=== PATIENT | male | born 1965 | race Caucasian/White ===

== ENCOUNTER → 2016-11-26 | Outpatient (CLI) | payer OTHER ==
--- NOTE | 2016-11-26 08:18 | US ---
EXAMINATION TYPE: US abdomen limited DATE OF EXAM: 11/26/2016 COMPARISON: CTA chest dated 06/17/2013 CLINICAL HISTORY: K21.9 Gastroesphageal reflux disease. EXAM MEASUREMENTS: Liver Length: 11.8 cm Gallbladder Wall: 0.5 cm CBD: 0.4 cm Right Kidney: 10.4 x 5.4 x 4.7 cm Patient had extensive midline bowel gas, only able to visualized organs intercostally. Pancreas: Obscured by bowel gas Liver: There is mild heterogeneity of the hepatic parenchyma with poor visualization of the portal tr iads. This finding slightly limiting evaluation for underlying hepatic masses. Gallbladder: limited views, slightly thickened wall Evidence for sonographic Welsh's sign: no CBD: wnl Right Kidney: wnl IMPRESSION: Mild heterogeneity of the hepatic echotexture, most commonly related to mild hepatic steatosis. Adjac ent slight gallbladder wall thickening may relate to partial contraction, adjacent hepatocellular dis ease, or less likely gallbladder dysfunction. No other sonographic evidence of acute cholecystitis. C orrelation with bilirubin, hepatic enzymes, symptoms and right upper quadrant pain are recommended to determine necessity of HIDA scan to evaluate for biliary dyskinesia/chronic cholecystitis.
== END | disposition home or self-care (01) ==
LOC: RADUSWWP 07:32
PROVIDERS: ATTEND Family Medicine
DX: K76.89 Other specified diseases of liver (principal); K82.8 Other specified diseases of gallbladder
CPT/HCPCS: 76705

== ENCOUNTER 2018-04-09 17:39 | Observation (INO) | payer BC, OTHER ==
[2018-04-09] MEDS ORDERED: SODIUM CHLORIDE 0.9% 1,000 ML IV STA (18:41)
--- NOTE | 2018-04-09 18:42 | ED ---
Chest Pain HPI - General Chief Complaint: Chest Pain Stated Complaint: CHEST PAIN Time Seen by Provider: 04/09/18 18:41 Source: patient, RN notes reviewed, old records reviewed Mode of arrival: ambulatory Limitations: no limitations - History of Present Illness Initial Comments: This is a 52-year-old male to the ER for evaluation. This patient presents today for evaluation of chest pain. No significant medical history takes no medications nonsmoker. No strong family history of heart disease. Patient coming of chest pain off the ER prior to arrival. Left-sided chest pain feels tenseness and heaviness on his chest. No recent travel history, no sick contacts. Patient has no prior evaluation for chest pain. Onset: during rest Pain Location: substernal, left chest Severity: mild Severity scale (1-10): 2 Quality: aching Consistency: constant Improves With: nothing Worsens With: nothing Treatments Prior to Arrival: none - Related Data Home Medications Medication Instructions Recorded Confirmed Omeprazole [PriLOSEC] 20 mg PO DAILY 04/09/18 04/09/18 levETIRAcetam [Keppra] 1,000 mg PO QAM 04/09/18 04/09/18 levETIRAcetam [Keppra] 2,000 mg PO HS 04/09/18 04/09/18 Allergies Allergy/AdvReac Type Severity Reaction Status Date / Time No Known Allergies Allergy Verified 04/09/18 18:24 Review of Systems ROS Statement: Those systems with pertinent positive or pertinent negative responses have been documented in the HPI. ROS Other: All systems not noted in ROS Statement are negative. Past Medical History Past Medical History: Seizure Disorder History of Any Multi-Drug Resistant Organisms: None Reported Past Surgical History: Orthopedic Surgery Additional Past Surgical History / Comment(s): sinus surgery Past Psychological History: No Psychological Hx Reported Smoking Status: Never smoker Past Alcohol Use History: Occasional Past Drug Use History: None Reported General Exam Limitations: no limitations General appearance: alert, in no apparent distress Head exam: Present: atraumatic, normocephalic, normal inspection Eye exam: Present: normal appearance, PERRL, EOMI. Absent: scleral icterus, conjunctival injection, periorbital swelling ENT exam: Present: normal exam, mucous membranes moist Neck exam: Present: normal inspection. Absent: tenderness, meningismus, lymphadenopathy Respiratory exam: Present: normal lung sounds bilaterally. Absent: respiratory distress, wheezes, rales, rhonchi, stridor Cardiovascular Exam: Present: normal rhythm, tachycardia, normal heart sounds. Absent: systolic murmur, diastolic murmur, rubs, gallop, clicks GI/Abdominal exam: Present: soft, normal bowel sounds. Absent: distended, tenderness, guarding, rebound, rigid Extremities exam: Present: normal inspection, full ROM, normal capillary refill. Absent: tenderness, pedal edema, joint swelling, calf tenderness Back exam: Present: normal inspection Neurological exam: Present: alert, oriented X3, CN II-XII intact Psychiatric exam: Present: normal affect, normal mood Skin exam: Present: warm, dry, intact, normal color. Absent: rash Course Vital Signs 04/09/18 04/09/18 04/09/18 17:41 18:40 21:00 Temperature 98.2 F Pulse Rate 101 H 89 92 Respiratory 18 16 16 Rate Blood Pressure 162/127 142/100 142/100 O2 Sat by Pulse 98 93 L 97 Oximetry - Reevaluation(s) Reevaluation #1: 04/09/18 21:10 Medical record reviewed Reevaluation #2: 04/09/18 21:10 Patient still continues to chest pain Chest Pain MDM - MDM 52 male the ER for evaluation. Patient presents today for evaluation regarding chest pain. CT shows coronary artery calcifications, patient will be admitted for cardiac evaluation Critical Care Time Critical Care Time: Yes Total Critical Care Time: 31 Disposition Clinical Impression: Chest pain Disposition: ADMITTED IP TO THIS [facility] Condition: Undetermined Instructions (If sedation given, give patient instructions): Chest Pain (ED) Referrals: Aida Suazo MD [Primary Care Provider] - 1-2 days
[2018-04-09 18:47] LABS: Basophils # (A) 0.1 k/uL (0-0.2); Basophils % (A) 1 %; Eosinophils # (A) 0.3 k/uL (0-0.7); Eosinophils % (A) 3 %; HCT 54.6 % (39.0-53.0); HGB 18.5 gm/dL (13.0-17.5); Lymphocytes # (A) 2.4 k/uL (1.0-4.8); Lymphocytes % (A) 25 %; MCH 30.6 pg (25.0-35.0); MCHC 33.8 g/dL (31.0-37.0); MCV 90.4 fL (80.0-100.0); Mean Platelet Volume 6.9; Monocytes # (A) 0.6 k/uL (0-1.0); Monocytes % (A) 7 %; Neutrophils # (A) 6.1 k/uL (1.3-7.7); Neutrophils % (A) 63 %; Platelet Count 270 k/uL (150-450); RBC 6.04 m/uL (4.30-5.90); RDW 13.6 % (11.5-15.5); WBC 9.7 k/uL (3.8-10.6)
[2018-04-09 18:57] LABS: ALT 35 U/L (21-72); AST 31 U/L (17-59); Alkaline Phosphatase 100 U/L (38-126); Anion Gap 12 mmol/L; Blood Urea Nitrogen 16 mg/dL (9-20); Calcium 9.9 mg/dL (8.4-10.2); Carbon Dioxide 24 mmol/L (22-30); Chloride 104 mmol/L (98-107); Glucose 115 mg/dL (74-99); Magnesium 1.8 mg/dL (1.6-2.3); Potassium 4.7 mmol/L (3.5-5.1); Sodium 140 mmol/L (137-145); Total Bilirubin 0.6 mg/dL (0.2-1.3); Total Protein 8.6 g/dL (6.3-8.2)
[2018-04-09 19:04] LABS: Creatine Kinase 56 U/L (55-170)
[2018-04-09 19:16] LABS: Creatine Kinase MB 0.5 ng/mL (0.0-2.4); Troponin I <0.012 ng/mL (0.000-0.034)
[2018-04-09 19:18] LABS: D-Dimer <0.17 mg/L FEU (<0.60); Partial Thromboplastin Time 24.9 sec (22.0-30.0); Prothrombin Time 10.5 sec (9.0-12.0)
--- NOTE | 2018-04-09 20:51 | XR ---
EXAMINATION: XR chest 2V DATE AND TIME: 04/09/2018 8:12 PM CLINICAL INDICATION: PHH; pain TECHNIQUE: Departmental protocol COMPARISON: 06/20/2013 FINDINGS: The lungs are clear. The right hemidiaphragm is elevated, similar to the prior study. Pleural spaces are negative as seen. The cardiac silhouette is mildly enlarged, unchanged. The remainder of the mediastinal silhouette is unremarkable. The skeletal structures and soft tissues are negative for acute findings. IMPRESSION: NO ACUTE PROCESS.
--- NOTE | 2018-04-09 20:55 | CT ---
EXAMINATION TYPE: CT angio chest with contrast and with 3-D reconstruction renderings DATE OF EXAM: 04/09/2018 8:05 PM HISTORY: Pain and dyspnea CT DLP: 335.8 mGycm Automated exposure control for dose reduction was used. CONTRAST: CTA scan of the thorax is performed; patient injected with 100 mL of Isovue 370, pulmonary embolism p rotocol. 3-D reconstructions. FINDINGS: LUNGS: The lungs are grossly clear, there is no concerning parenchymal mass or nodule identified. T here is no pleural effusion or pneumothorax seen. The tracheobronchial tree is patent. MEDIASTINUM: There is satisfactory enhancement of the pulmonary artery and its branches, there is no CT evidence for pulmonary embolism. No acute aortic findings, though tortuosity noted. There is no ca rdiomegaly. Coronary calcifications are noted. No pericardial effusion. There are no greater than 1 c m hilar or mediastinal lymph nodes. OTHER: No additional significant abnormality is seen. IMPRESSION: 1. NO ACUTE PROCESS. 2. CORONARY CALCIFICATIONS.
[2018-04-09] MEDS ORDERED: HEPARIN SODIUM,PORCINE 5,000 UNIT/ML 1 ML VIAL IV PRN (21:08)
[2018-04-09] MEDS ORDERED: HEPARIN SODIUM,PORCINE 5,000 UNIT/ML 1 ML VIAL IV ONE (21:08)
[2018-04-09] MEDS ORDERED: HEPARIN SOD,PORK IN 0.45% NACL 25,000 UNIT in 0.45% NACL 1 250ML.BAG IV SCH (21:15)
[2018-04-09] MEDS ORDERED: ASPIRIN 81 MG PO STA (21:41)
[2018-04-09 23:08] VITALS: BMI 28.6
[2018-04-09] MEDS ORDERED: levETIRAcetam 500 MG TAB PO SCH (23:30)
[2018-04-10 01:19] LABS: Creatine Kinase 43 U/L (55-170)
[2018-04-10 01:33] LABS: Creatine Kinase MB 0.3 ng/mL (0.0-2.4); Troponin I <0.012 ng/mL (0.000-0.034)
[2018-04-10 06:16] LABS: Mean Platelet Volume 6.8; Platelet Count 266 k/uL (150-450)
[2018-04-10 06:35] LABS: Cholesterol 167 mg/dL (<200); HDL Cholesterol 53 mg/dL (40-60); LDL Cholesterol,Calculated 82 mg/dL (0-99); Triglycerides 162 mg/dL (<150)
[2018-04-10 06:38] LABS: Creatine Kinase 40 U/L (55-170)
[2018-04-10 06:50] LABS: Creatine Kinase MB 0.3 ng/mL (0.0-2.4); Troponin I <0.012 ng/mL (0.000-0.034)
[2018-04-10 08:49] VITALS: BP 135/88; PULSE 82; RESP 18; TEMP 97.6
[2018-04-10] MEDS ORDERED: ASPIRIN 325 MG TAB PO SCH (09:00)
[2018-04-10] MEDS ORDERED: PANTOPRAZOLE 40 MG TABLET PO SCH (09:00)
[2018-04-10] MEDS ORDERED: levETIRAcetam 500 MG TAB PO SCH (09:00)
[2018-04-10] MEDS ORDERED: ATORVASTATIN 20 MG TAB PO SCH (09:00)
[2018-04-10] MEDS ORDERED: ATORVASTATIN 80 MG TAB PO SCH (09:00)
[2018-04-10] MEDS ORDERED: METOPROLOL TARTRATE 25 MG TAB PO SCH (09:00)
--- NOTE | 2018-04-10 09:48 | P.CRDCN ---
History of Present Illness History of present illness: This is Dr. Benito dictating a consult on this patient The patient was interviewed and examined by me IMPRESSION / ASSESSMENT: chest discomfort with normal cardiac enzymes normal ECG Coronary calcification Family history of coronary artery disease No personal history of hypertension diabetes and dyslipidemia PLAN: 2-D echo and Doppler study to assess pericardium and Extraction function Atorvastatin 20 mg by mouth daily Follow-up in the office in 1-2 weeks Patient to go home if cleared from a medical standpoint HPI patient presented with recurrent chest discomfort and he thought he was coming down with cold and the pain is worse when he takes a deep breath it is around the left side going around to the back No other associated symptoms ROS: No fever chills or rigors, no cough, phlegm or expectoration, no nausea, vomiting or diarrhea, no hematuria, dysuria, no musculoskeletal complaints, no strokes or seizures, no skin lesions. EXAMINATION: 135/85 mmHg afebrile Breath sounds are clear no rhonchi no crackles Heart sounds S1 and S2 are normal no murmurs or gallops. Abdomen soft nontender Extremities warm no edema REVIEW OF LABS, ECG & MEDICAL DATA Computed tomography scan states coronary calcification no evidence for pulmonary embolism no acute aortic findings Right hemidiaphragm is elevated Past Medical History Past Medical History: Seizure Disorder History of Any Multi-Drug Resistant Organisms: None Reported Past Surgical History: Orthopedic Surgery, Tonsillectomy Additional Past Surgical History / Comment(s): sinus surgery, L meniscus Past Anesthesia/Blood Transfusion Reactions: No Reported Reaction Past Psychological History: No Psychological Hx Reported Smoking Status: Never smoker Past Alcohol Use History: Occasional Past Drug Use History: None Reported Medications and Allergies Home Medications Medication Instructions Recorded Confirmed Type Omeprazole [PriLOSEC] 20 mg PO DAILY 04/09/18 04/09/18 History levETIRAcetam [Keppra] 1,000 mg PO QAM 04/09/18 04/09/18 History levETIRAcetam [Keppra] 2,000 mg PO HS 04/09/18 04/09/18 History Allergies Allergy/AdvReac Type Severity Reaction Status Date / Time No Known Allergies Allergy Verified 04/09/18 18:24 Physical Exam Vitals: Vital Signs Temp Pulse Pulse Resp BP BP Pulse Ox 04/10/18 08:00 82 18 04/10/18 07:28 97.6 F 82 18 135/88 94 L 04/10/18 04:00 98.0 F 79 15 131/84 94 L 04/10/18 00:00 77 15 04/09/18 23:24 98.1 F 77 15 154/94 96 04/09/18 21:52 97 16 148/98 96 04/09/18 21:00 92 16 142/100 97 04/09/18 19:30 87 18 134/95 97 04/09/18 18:40 89 16 142/100 93 L 04/09/18 17:41 98.2 F 101 H 18 162/127 98 Intake and Output 04/09/18 04/10/18 04/10/18 22:59 06:59 14:59 Other: # Voids 1 Weight 78.925 kg Results 04/10/18 06:01 04/09/18 18:17 Cardiac Enzymes 04/09/18 04/09/18 04/10/18 Range/Units 18:17 18:17 00:09 AST 31 (17-59) U/L CK-MB (CK-2) 0.5 0.3 (0.0-2.4) ng/mL Troponin I <0.012 <0.012 (0.000-0.034) ng/mL 04/10/18 Range/Units 06:01 AST (17-59) U/L CK-MB (CK-2) 0.3 (0.0-2.4) ng/mL Troponin I <0.012 (0.000-0.034) ng/mL Coagulation 04/09/18 04/10/18 Range/Units 18:17 03:30 PT 10.5 (9.0-12.0) sec APTT 24.9 51.6 H (22.0-30.0) sec Lipids 04/10/18 Range/Units 06:01 Triglycerides 162 H (<150) mg/dL Cholesterol 167 (<200) mg/dL HDL Cholesterol 53 (40-60) mg/dL CBC 04/09/18 04/10/18 Range/Units 18:17 06:01 WBC 9.7 (3.8-10.6) k/uL RBC 6.04 H (4.30-5.90) m/uL Hgb 18.5 H (13.0-17.5) gm/dL Hct 54.6 H (39.0-53.0) % Plt Count 270 266 (150-450) k/uL Comprehensive Metabolic Panel 04/09/18 Range/Units 18:17 Sodium 140 (137-145) mmol/L Potassium 4.7 (3.5-5.1) mmol/L Chloride 104 (98-107) mmol/L Carbon Dioxide 24 (22-30) mmol/L BUN 16 (9-20) mg/dL Creatinine 0.90 (0.66-1.25) mg/dL Glucose 115 H (74-99) mg/dL Calcium 9.9 (8.4-10.2) mg/dL AST 31 (17-59) U/L ALT 35 (21-72) U/L Alkaline Phosphatase 100 (38-126) U/L Total Protein 8.6 H (6.3-8.2) g/dL Albumin 5.0 (3.5-5.0) g/dL Current Medications Generic Name Dose Route Start Last Admin Trade Name Freq PRN Reason Stop Dose Admin Atorvastatin Calcium 20 mg 04/10/18 09:00 04/10/18 08:55 Lipitor PO 20 mg DAILY ELMIRA Administration Levetiracetam 1,000 mg 04/10/18 09:00 04/10/18 08:55 Keppra PO 1,000 mg QAM [place]IRA Administration Levetiracetam 2,000 mg 04/09/18 23:30 04/10/18 00:05 Keppra PO 2,000 mg HS EL[place]IRA Administration Pantoprazole Sodium 40 mg 04/10/18 09:00 04/10/18 08:55 Protonix PO 40 mg DAILY EL[place]IRA Administration Intake and Output 04/09/18 04/10/18 04/10/18 22:59 06:59 14:59 Other: # Voids 1 Weight 78.925 kg 04/10/18 06:01 04/09/18 18:17
--- NOTE | 2018-04-10 11:31 | ECHOF ---
Referral Reason:chest pain MEASUREMENTS -------- HEIGHT: 170.2 cm WEIGHT: 78.9 kg BP: 131/84 RVIDd: 2.9 cm (< 3.3) IVSd: 1.0 cm (0.6 - 1.1) LVIDd: 4.4 cm (3.9 - 5.3) LVPWd: 1.1 cm (0.6 - 1.1) IVSs: 1.5 cm LVIDs: 3.3 cm LVPWs: 1.1 cm Ao Diam: 3.3 cm (2.0 - 3.7) AV Cusp: 1.6 cm (1.5 - 2.6) LA Diam: 3.1 cm (2.7 - 3.8) MV EXCURSION: 17.701 mm (> 18.000) MV EF SLOPE: 83 mm/s (70 - 150) EPSS: 0.3 cm MV E Alli: 0.38 m/s MV DecT: 227 ms MV A Alli: 0.76 m/s MV E/A Ratio: 0.49 RAP: 5.00 mmHg RVSP: 15.10 mmHg FINDINGS -------- Sinus rhythm. This was a technically adequate study. LV size, wall thickness and systolic function are normal, with an EF greater than 55%. The left heber tricular size is normal. The right ventricle is normal in size. The left atrial size is normal. The right atrial size is normal. The aortic valve is trileaflet, and appears structurally normal. No aortic stenosis or regurgitation. Mild mitral annular calcification present. Mild mitral regurgitation is present. Mild tricuspid regurgitation present. There is no evidence of pulmonary hypertension. The right v entricular systolic pressure, as measured by Doppler, is 15.10mmHg. There is no pulmonic regurgitation present. The aortic root size is normal. There is no pericardial effusion. CONCLUSIONS -------- 1. LV size, wall thickness and systolic function are normal, with an EF greater than 55%. 2. The left ventricular size is normal. 3. The right ventricle is normal in size. 4. The left atrial size is normal. 5. The right atrial size is normal. 6. The aortic valve is trileaflet, and appears structurally normal. No aortic stenosis or regurgitati on. 7. Mild mitral annular calcification present. 8. Mild mitral regurgitation is present. 9. Mild tricuspid regurgitation present. 10. There is no evidence of pulmonary hypertension. 11. The right ventricular systolic pressure, as measured by Doppler, is 15.10mmHg. 12. There is no pulmonic regurgitation present. 13. The aortic root size is normal. 14. There is no pericardial effusion. WILLOW WORKER: Aaliyah Casas RDCS
--- NOTE | 2018-04-10 12:35 | P.HPIM ---
History of Present Illness 60-year-old male came in with compensative chest pressure like sensation which started yesterday while he was driving on that side of chest pressure-like sensation moderate severity much better now unsure whether rate radiating to axilla denied any diaphoresis denied any shortness of breath lightheadedness. Patient chest pain is reproducible nonpleuritic not associated with food. Patient is also complaining of some back pain neck pain. Patient appears to have musculoskeletal chest pain. She denied any fever chills cough. Patient is not a smoker his hematocrit is elevated can be evaluated as an outpatient. Ruled out acute Syndromes EKG Did Not Show Any Acute ST-T wave Changes Troponins Were Negative Patient Had an Echo Cardiac Exam Which Is Essentially within Normal Limits Patient Was Evaluated by Cardiology and Cleared Him for Discharge. CT Angios the Set Showed Some Coronary Calcifications without Any Pneumonic Process or PE Review of Systems REVIEW OF SYSTEMS: CONSTITUTIONAL: No fever, no malaise, no fatigue. HEENT: No recent visual problems or hearing problems. Denied any sore throat. CARDIOVASCULAR: No orthopnea, PND, no palpitations, no syncope. PULMONARY: No shortness of breath, no cough, no hemoptysis. GASTROINTESTINAL: No diarrhea, no nausea, no vomiting, no abdominal pain. NEUROLOGICAL: No headaches, no weakness, no numbness. HEMATOLOGICAL: Denies any bleeding or petechiae. GENITOURINARY: Denies any burning micturition, frequency, or urgency. MUSCULOSKELETAL/RHEUMATOLOGICAL: Denies any joint pain, swelling, or any muscle pain. ENDOCRINE: Denies any polyuria or polydipsia. The rest of the 14-point review of systems is negative. Past Medical History Past Medical History: Seizure Disorder History of Any Multi-Drug Resistant Organisms: None Reported Past Surgical History: Orthopedic Surgery, Tonsillectomy Additional Past Surgical History / Comment(s): sinus surgery, L meniscus Past Anesthesia/Blood Transfusion Reactions: No Reported Reaction Past Psychological History: No Psychological Hx Reported Smoking Status: Never smoker Past Alcohol Use History: Occasional Past Drug Use History: None Reported Medications and Allergies Home Medications Medication Instructions Recorded Confirmed Type Omeprazole [PriLOSEC] 20 mg PO DAILY 04/09/18 04/09/18 History levETIRAcetam [Keppra] 1,000 mg PO QAM 04/09/18 04/09/18 History levETIRAcetam [Keppra] 2,000 mg PO HS 04/09/18 04/09/18 History Allergies Allergy/AdvReac Type Severity Reaction Status Date / Time No Known Allergies Allergy Verified 04/09/18 18:24 Physical Exam Vitals: Vital Signs Temp Pulse Pulse Resp BP BP Pulse Ox 04/10/18 12:00 82 18 04/10/18 08:00 82 18 04/10/18 07:28 97.6 F 82 18 135/88 94 L 04/10/18 04:00 98.0 F 79 15 131/84 94 L 04/10/18 00:00 77 15 04/09/18 23:24 98.1 F 77 15 154/94 96 04/09/18 21:52 97 16 148/98 96 04/09/18 21:00 92 16 142/100 97 04/09/18 19:30 87 18 134/95 97 04/09/18 18:40 89 16 142/100 93 L 04/09/18 17:41 98.2 F 101 H 18 162/127 98 Intake and Output 04/09/18 04/10/18 04/10/18 22:59 06:59 14:59 Other: # Voids 1 1 Weight 78.925 kg PHYSICAL EXAMINATION: GENERAL: The patient is alert and oriented x3, not in any acute distress. Well developed, well nourished. HEENT: Pupils are round and equally reacting to light. EOMI. No scleral icterus. No conjunctival pallor. Normocephalic, atraumatic. No pharyngeal erythema. No thyromegaly. CARDIOVASCULAR: S1 and S2 present. No murmurs, rubs, or gallops. Reproducible chest pain PULMONARY: Chest is clear to auscultation, no wheezing or crackles. ABDOMEN: Soft, nontender, nondistended, normoactive bowel sounds. No palpable organomegaly. MUSCULOSKELETAL: No joint swelling or deformity. EXTREMITIES: No cyanosis, clubbing, or pedal edema. NEUROLOGICAL: Gross neurological examination did not reveal any focal deficits. SKIN: No rashes. Results CBC & Chem 7: 04/10/18 06:01 04/09/18 18:17 Labs: Abnormal Lab Results - Last 24 Hours (Table) 04/09/18 04/09/18 04/10/18 Range/Units 18:17 18:17 00:09 RBC 6.04 H (4.30-5.90) m/uL Hgb 18.5 H (13.0-17.5) gm/dL Hct 54.6 H (39.0-53.0) % APTT (22.0-30.0) sec Glucose 115 H (74-99) mg/dL Total Creatine Kinase 43 L (55-170) U/L Total Protein 8.6 H (6.3-8.2) g/dL Triglycerides (<150) mg/dL 04/10/18 04/10/18 04/10/18 Range/Units 03:30 06:01 06:01 RBC (4.30-5.90) m/uL Hgb (13.0-17.5) gm/dL Hct (39.0-53.0) % APTT 51.6 H (22.0-30.0) sec Glucose (74-99) mg/dL Total Creatine Kinase 40 L (55-170) U/L Total Protein (6.3-8.2) g/dL Triglycerides 162 H (<150) mg/dL Thrombosis Risk Factor Assmnt - Choose All That Apply Any of the Below Risk Factors Present?: Yes Each Factor Represents 1 point: Age 41-60 years Other Risk Factors: No Other congenital or acquired thrombophilia - If yes, enter type in comment: No Thrombosis Risk Factor Assessment Total Risk Factor Score: 1 Thrombosis Risk Factor Assessment Level: Low Risk Assessment and Plan Plan: -Chest pain rule out acute medicine syndromes probably musculoskeletal in nature patient was asked to take [id number] Tylenol and as-needed basis patient does have gastroesophageal reflux disease. For which he takes Prilosec at home. -Elevated hematocrit etiology is unknown further evaluation as an outpatient may be a bit dehydrated but patient doesn't admit to smoking. -Seizure disorder for which patient is on Keppra which will be continued follow- up as an outpatient -Ruled out pulmonary embolism
--- NOTE | 2018-04-10 12:36 | P.DS ---
Providers Date of admission: 04/09/18 21:10 Attending physician: Marbin Olivares Consults: 04/09/18 21:08 Consult Physician Urgent Consulting Provider: Christiano Muse Consult Reason/Comments: cp Do you want consulting provider notified?: Yes Primary care physician: Aida Suazo [facility] Course: Please refer to my HPI Patient Condition at Discharge: Undetermined Plan - Discharge Summary Discharge Rx Participant: Yes New Discharge Prescriptions: No Action Omeprazole [PriLOSEC] 20 mg PO DAILY levETIRAcetam [Keppra] 2,000 mg PO HS levETIRAcetam [Keppra] 1,000 mg PO QAM Discharge Medication List Omeprazole [PriLOSEC] 20 mg PO DAILY 04/09/18 [History] levETIRAcetam [Keppra] 1,000 mg PO QAM 04/09/18 [History] levETIRAcetam [Keppra] 2,000 mg PO HS 04/09/18 [History] Follow up Appointment(s)/Referral(s): Jim Benito MD [STAFF PHYSICIAN] - 1 Week Aida Suazo MD [Primary Care Provider] - 1-2 days Patient Instructions/Handouts: Chest Pain (ED) Discharge Disposition: HOME SELF-CARE
== END 2018-04-10 15:01 | disposition home or self-care (01) ==
LOC: EC 17:39 → 1SOBS 21:10
PROVIDERS: ADMIT Hospitalist; ATTEND Hospitalist
DX: R07.89 Other chest pain (principal); K21.9 Gastro-esophageal reflux disease without esophagitis; G40.909 Epilepsy, unspecified, not intractable, without status epilepticus; R71.8 Other abnormality of red blood cells; Z79.899 Other long term (current) drug therapy; I25.10 Atherosclerotic heart disease of native coronary artery without angina pectoris; J98.6 Disorders of diaphragm; Z82.49 Family history of ischemic heart disease and other diseases of the circulatory system
CPT/HCPCS: 96366 ×2; 96376; 96361; 96365; 99291; 36415; 93005; 93306; 85379; 83880; 80061; 80053; 82550 ×2; 82553 ×2; 83690; 83735; 84484 ×2; 85025; 85049; 85610; 85730 ×2; 71046; 71275; G0378 ×2; J1644 ×2; Q9967

== ENCOUNTER 2020-07-05 07:37 | Emergency (ER) | payer BC ==
[2020-07-05 07:41] VITALS: RESP 18
[2020-07-05] MEDS ORDERED: SODIUM CHLORIDE 0.9% 1,000 ML IV STA (08:06)
[2020-07-05] MEDS ORDERED: ACETAMINOPHEN TAB 500 MG TAB PO STA (08:07)
--- NOTE | 2020-07-05 08:12 | ED ---
General Adult HPI - General Chief complaint: Upper Respiratory Infection Stated complaint: Covid+, low O2 Time Seen by Provider: 07/05/20 07:53 Source: patient, RN notes reviewed Mode of arrival: ambulatory Limitations: no limitations - History of Present Illness Initial comments: 54-year-old male with a past medical history of seizure disorder presents to the emergency room for a chief complaint of shortness of breath. Patient reports about 8 days ago he started to develop symptoms of Coronavirus. States he has had a cough and shortness of breath. States he has had fevers on and off. Patient states he tested positive on last week. Patient states he's presenting to the emergency room today because he just does not seem to be getting better. States he is still having fevers if he does not take Tylenol. States he is still feeling short of breath.Patient has no other complaints at this time including chest pain, abdominal pain, nausea or vomiting, headache, or visual changes. - Related Data Home Medications Medication Instructions Recorded Confirmed levETIRAcetam [Keppra] 1,000 mg PO DAILY 04/09/18 07/05/20 levETIRAcetam [Keppra] 1,500 mg PO HS 04/09/18 07/05/20 Ascorbic Acid [Vitamin C] 1,000 mg PO DAILY 07/05/20 07/05/20 Cholecalciferol [Vitamin D3 (25 25 mcg PO DAILY 07/05/20 07/05/20 Mcg = 1000 Iu)] Latanoprost/Pf [Latanoprost 0.005% 1 drop BOTH EYES HS 07/05/20 07/05/20 Eye Drop] Zinc 50 mg PO DAILY 07/05/20 07/05/20 Previous Rx's Medication Instructions Recorded Azithromycin [Zithromax Z-pack (6 250 mg PO DIRECTED #6 tab 07/05/20 tabs)] Ipratropium-Albuterol Nebulize 3 ml INHALATION TID PRN #15 neb 07/05/20 [Duoneb 0.5 mg-3 mg/3 ml Soln] Allergies Allergy/AdvReac Type Severity Reaction Status Date / Time No Known Allergies Allergy Verified 07/05/20 08:31 Review of Systems ROS Statement: Those systems with pertinent positive or pertinent negative responses have been documented in the HPI. ROS Other: All systems not noted in ROS Statement are negative. Past Medical History Past Medical History: Seizure Disorder History of Any Multi-Drug Resistant Organisms: None Reported Past Surgical History: Orthopedic Surgery, Tonsillectomy Additional Past Surgical History / Comment(s): sinus surgery, L meniscus Past Anesthesia/Blood Transfusion Reactions: No Reported Reaction Past Psychological History: No Psychological Hx Reported Smoking Status: Never smoker Past Alcohol Use History: Occasional Past Drug Use History: None Reported General Exam Limitations: no limitations General appearance: alert, in no apparent distress Head exam: Present: atraumatic, normocephalic, normal inspection Eye exam: Present: normal appearance, PERRL, EOMI. Absent: scleral icterus, conjunctival injection, periorbital swelling ENT exam: Present: normal exam, mucous membranes moist Neck exam: Present: normal inspection. Absent: tenderness, meningismus, lymphadenopathy Respiratory exam: Present: normal lung sounds bilaterally. Absent: respiratory distress, wheezes, rales, rhonchi, stridor Cardiovascular Exam: Present: regular rate, normal rhythm, normal heart sounds. Absent: systolic murmur, diastolic murmur, rubs, gallop, clicks Course Vital Signs 07/05/20 07:38 Temperature 97.8 F Pulse Rate 97 Respiratory 18 Rate Blood Pressure 136/92 O2 Sat by Pulse 94 L Oximetry EKG Findings - EKG Comments: EKG Findings:: Normal sinus rhythm, ventricular rate 95, MO interval 152, QTC 444 Medical Decision Making - Medical Decision Making Vitals are stable. Oxygen is between 95 and 96% when I am in the room. Patient is well-appearing. EKG nonischemic. CBC CMP unremarkable. Transaminitis likely secondary to [place] virus. This x-ray did reveal mild patchy interstiti al Covid infiltrates in the mid and lower lungs. Patient is stable for discharge home. He does not qualify for BAM. Discussed that this is most likely related to viral disease however patient does prefer to start antibiotic therapy at this time. He is already taking zinc and vitamin C which he will continue. I will write him medication for his nebulizer. He will follow-up with his doctor. He will return here for any worsening symptoms. - Lab Data Result diagrams: 07/05/20 08:17 07/05/20 08:17 Lab Results 07/05/20 07/05/20 Range/Units 08:17 08:17 WBC 8.1 (3.8-10.6) k/uL RBC 5.51 (4.30-5.90) m/uL Hgb 17.2 (13.0-17.5) gm/dL Hct 49.0 (39.0-53.0) % MCV 89.0 (80.0-100.0) fL MCH 31.3 (25.0-35.0) pg MCHC 35.1 (31.0-37.0) g/dL RDW 12.8 (11.5-15.5) % Plt Count 267 (150-450) k/uL MPV 7.2 Neutrophils % 75 % Lymphocytes % 12 % Monocytes % 9 % Eosinophils % 1 % Basophils % 2 % Neutrophils # 6.0 (1.3-7.7) k/uL Lymphocytes # 1.0 (1.0-4.8) k/uL Monocytes # 0.7 (0-1.0) k/uL Eosinophils # 0.1 (0-0.7) k/uL Basophils # 0.1 (0-0.2) k/uL Sodium 135 L (137-145) mmol/L Potassium 4.2 (3.5-5.1) mmol/L Chloride 98 (98-107) mmol/L Carbon Dioxide 27 (22-30) mmol/L Anion Gap 10 mmol/L BUN 11 (9-20) mg/dL Creatinine 0.80 (0.66-1.25) mg/dL Est GFR (CKD-EPI)AfAm >90 (>60 ml/min/1.73 sqM) Est GFR (CKD-EPI)NonAf >90 (>60 ml/min/1.73 sqM) Glucose 110 H (74-99) mg/dL Calcium 8.7 (8.4-10.2) mg/dL Total Bilirubin 0.8 (0.2-1.3) mg/dL AST 113 H (17-59) U/L ALT 206 H (4-49) U/L Alkaline Phosphatase 121 (38-126) U/L Total Protein 7.1 (6.3-8.2) g/dL Albumin 3.9 (3.5-5.0) g/dL Disposition Clinical Impression: Pneumonia due to COVID-19 virus Disposition: HOME SELF-CARE Condition: Good Instructions (If sedation given, give patient instructions): Coronavirus Disease 2019 (COVID-19) Additional Instructions: Please take antibiotic as directed. Please follow-up with your doctor. If you develop worsening symptoms return to the emergency room. Prescriptions: Ipratropium-Albuterol Nebulize [Duoneb 0.5 mg-3 mg/3 ml Soln] 3 ml INHALATION TID PRN #15 neb PRN Reason: Shortness Of Breath Azithromycin [Zithromax Z-pack (6 tabs)] 250 mg PO DIRECTED #6 tab Is patient prescribed a controlled substance at d/c from ED?: No Referrals: Aida Suazo MD [Primary Care Provider] - 1-2 days Time of Disposition: 09:14
--- NOTE | 2020-07-05 08:24 | XR ---
EXAMINATION TYPE: XR chest 1V portable DATE OF EXAM: 07/05/2020 Comparison: 04/09/2018 Clinical History: 54-year-old female with fever, COVID Findings: Heart upper limits of normal in size. Mild patchy interstitial changes in the mid and lower lungs. No pleural effusion. Impression: Mild patchy interstitial COVID infiltrates in the mid and lower lungs.
[2020-07-05 08:30] LABS: Basophils # (A) 0.1 k/uL (0-0.2); Basophils % (A) 2 %; Eosinophils # (A) 0.1 k/uL (0-0.7); Eosinophils % (A) 1 %; HGB 17.2 gm/dL (13.0-17.5); Lymphocytes % (A) 12 %; MCH 31.3 pg (25.0-35.0); MCHC 35.1 g/dL (31.0-37.0); Mean Platelet Volume 7.2; Monocytes # (A) 0.7 k/uL (0-1.0); Monocytes % (A) 9 %; Neutrophils % (A) 75 %; Platelet Count 267 k/uL (150-450); RBC 5.51 m/uL (4.30-5.90); RDW 12.8 % (11.5-15.5); WBC 8.1 k/uL (3.8-10.6)
[2020-07-05 08:52] LABS: ALT 206 U/L (4-49); AST 113 U/L (17-59); African American GFR (CKD) >90 (>60 ml/min/1.73 sqM); Albumin 3.9 g/dL (3.5-5.0); Alkaline Phosphatase 121 U/L (38-126); Anion Gap 10 mmol/L; Blood Urea Nitrogen 11 mg/dL (9-20); Calcium 8.7 mg/dL (8.4-10.2); Carbon Dioxide 27 mmol/L (22-30); Chloride 98 mmol/L (98-107); Glucose 110 mg/dL (74-99); Non-African American GFR(CKD) >90 (>60 ml/min/1.73 sqM); Potassium 4.2 mmol/L (3.5-5.1); Sodium 135 mmol/L (137-145); Total Bilirubin 0.8 mg/dL (0.2-1.3); Total Protein 7.1 g/dL (6.3-8.2)
[2020-07-05 09:38] VITALS: BP 137/86; PULSE 90; TEMP 98
== END 2020-07-05 09:37 | disposition home or self-care (01) ==
LOC: EC 07:37
DX: U07.1 COVID-19 (principal); J12.82 Pneumonia due to coronavirus disease 2019; G40.909 Epilepsy, unspecified, not intractable, without status epilepticus
CPT/HCPCS: 36415; 71045; 80053; 85025; 93005; 96360; 99285

== ENCOUNTER → 2023-06-21 | Outpatient (CLI) | payer BC ==
[2023-06-21 15:50] LABS: Basophils # (A) 0.05 X 10*3/uL (0.00-0.10); Basophils % (A) 0.6 %; Eosinophils # (A) 0.14 X 10*3/uL (0.04-0.35); Eosinophils % (A) 1.7 %; HCT 50.7 % (39.6-50.0); HGB 16.5 g/dL (13.0-17.0); MCH 29.8 pg (27.0-32.0); MCHC 32.5 g/dL (32.0-37.0); MCV 91.7 FL (80.0-97.0); Monocytes % (A) 9.6 %; NRBC Per 100 WBC 0 X 10*3/uL (0.00-0.01); Neutrophils # (A) 5.33 X 10*3/uL (1.80-7.70); Neutrophils % (A) 63.7 %; Platelet Count 274 X 10*3/uL (140-440); RBC 5.53 X 10*6/uL (4.40-5.60); RDW 13.2 % (11.5-14.5); WBC 8.35 X 10*3/uL (4.50-10.00)
[2023-06-21 15:53] LABS: ALT 23 U/L (10-49); AST 22 U/L (14-35); Albumin 4.6 g/dL (3.8-4.9); Albumin/Globulin Ratio 1.59 Ratio (1.60-3.17); Alkaline Phosphatase 97 U/L (41-126); BUN/Creat Ratio 15.89 Ratio (12.00-20.00); Blood Urea Nitrogen 14.3 mg/dL (9.0-27.0); Calcium 9.9 mg/dL (8.7-10.3); Carbon Dioxide 25.4 mmol/L (21.6-31.8); Chloride 104 mmol/L (96-109); Chol/HDL Ratio 3.02 Ratio; Globulin 2.9 g/dL (1.6-3.3); Glucose 93 mg/dL (70-110); LDL Cholesterol,Calculated 93.9 mg/dL (0.0-131.0); Sodium 141 mmol/L (135-145); Total Bilirubin 0.3 mg/dL (0.3-1.2); Total Protein 7.5 g/dL (6.2-8.2); VLDL Calculation 15.22 mg/dL (5.00-40.00)
== END | disposition home or self-care (01) ==
LOC: LABWHC1 09:44
PROVIDERS: ATTEND Family Medicine
DX: Z12.5 Encounter for screening for malignant neoplasm of prostate (principal); Z13.220 Encounter for screening for lipoid disorders; Z13.228 Encounter for screening for other metabolic disorders; Z13.29 Encounter for screening for other suspected endocrine disorder; I10 Essential (primary) hypertension; G40.909 Epilepsy, unspecified, not intractable, without status epilepticus
CPT/HCPCS: 80053; 80061; 80177; 84443; 85025; 36415; G0103